=== PATIENT | male | born 1955 | race Caucasian/White ===

== ENCOUNTER → 2023-09-05 09:09 | Outpatient (REF) | payer MEDICARE, OTHER, SELFPAY | LOC: MRI 3T 09:09 | PROVIDERS: ATTENDING PHYSICIAN Orthopaedic Surgery; FAMILY PHYSICIAN Family Medicine | DX: M25.512 Pain in left shoulder (principal) | CPT/HCPCS: 73221 ==

== ENCOUNTER 2023-11-20 11:05 | Emergency (ER) | payer MEDICARE, OTHER, SELFPAY ==
[2023-11-20] VITALS (19 sets, daily range): BP systolic 104–155; BP diastolic 61–118; BMI 34.5
--- NOTE | 2023-11-20 12:14 | ED.GENMED ---
History of Present Illness
<Hank Falcon PA-C - Last Filed: 11/20/23 17:09>
General
Chief Complaint: Cardiac Symptoms
Time Seen by Provider: 11/20/23 11:39
History of Present Illness
History of Present Illness:
68-year-old male with history of atrial flutter (managed on Eliquis and dofetilide) presents to the emergency department for evaluation of epigastric discomfort and rapid heart rate beginning this morning. He also reports GERD symptoms that are
worse with lying supine. Admits to having several passes of wine last night. Nausea or vomiting. Typically has a flutter as well as GERD are well-controlled and he has no breakthrough symptoms. No recent fevers or chills
Past History
<Hank Falcon PA-C - Last Filed: 11/20/23 17:09>
Past History
ED Past Medical History: Arrthythmia (Atrial fib), GERD, HTN and Hypercholesterolemia
ED Past Surgical History: Cardiac (ablation) and Orthopedic (Knee surgery,)
Social History
Tobacco: Non-smoker
Alcohol: Daily (Wine)
Drug: None
Personal:
Living: with family
Employment: Employed
Family History
Family History: Hypertension
Review of Systems
<Hank Falcon PA-C - Last Filed: 11/20/23 17:09>
Review of Systems
Allergies reviewed?: Yes
All Other Systems: ROS reviewed and negative except as documented in HPI and ROS
Phy Exam
<Hank Falcon PA-C - Last Filed: 11/20/23 17:09>
Physical Exam
Physical Exam:
GEN: Well appearing, NAD, WDWN
Eyes: PERRLA, EOMs intact, no scleral icterus
HENT: NCAT, oral mucosa moist
Lungs: CTAB, no wheezes, rales, rhonchi, normal chest wall excursion
Cardiac: Tachycardic, regular, no murmurs
Abdomen: S, NT, ND, NABS, no masses or hepatosplenomegaly
Neuro: AO x 3
MSK: No gross deformity or ecchymosis. No edema. No digital clubbing
Skin: No rashes, petechiae. Normal color, no pallor or jaundice.
Psych: Calm, cooperative, proper hygiene
Course
<Hank Falcon PA-C - Last Filed: 11/20/23 17:09>
Orders/Labs/Results
Orders:
Orders
11/20/23 11:09
ECG [Electrocardiogram (*1)] Urgent
Reason for Study: Chest Pain
EKG- Treatment ONCE
11/20/23 11:45
Complete Blood Count/With Diff Urgent
Comprehensive Metabolic Panel Urgent
Lipase Urgent
Troponin I Urgent
11/20/23 12:05
Add On- LAB Urgent
Tests Added?: lipase
11/20/23 12:09
CR Chest - 2 Views Urgent
Comment:
Reason For Exam: chest/epigastric pain
11/20/23 12:53
Sucralfate Suspension [Carafate Suspension] 1 gm PO NOW STA
11/20/23 12:54
EKG- Treatment ONCE
11/20/23 13:55
D-Dimer Urgent
11/20/23 14:19
Troponin I Routine
11/20/23 14:45
EKG [Electrocardiogram (*1)] Routine
Reason for Study: Chest Pain
11/20/23 14:54
Propofol [Diprivan] 20 ml .ROUTE .STK-MED
Abnormal Lab Results
11/20/23
11:45
WBC 12.5 H 10^3/uL
(4.8-10.8)
Abs Immat Gran (auto) 0.1 H 10^3/uL
(0-0.05)
Absolute Neuts (auto) 10.8 H 10^3/uL
(1.4-6.5)
Absolute Lymphs (auto) 0.9 L 10^3/uL
(1.2-3.4)
Absolute Monos (auto) 0.7 H 10^3/uL
(0.1-0.6)
Immature Gran % 0.6 H %
(0-0.5)
Neutrophils % 86.1 H %
(42.2-75.2)
Lymphocytes % 6.8 L %
(20.5-51.1)
Glucose 195 H mg/dl
(70-99)
Total Bilirubin 2.1 H mg/dl
(0.2-1.3)
11/20/23 11:45
11/20/23 11:45
Vital Signs
Initial and Last Documented VS:
Initial Vital Signs
Temp Pulse Resp BP Pulse Ox
98.1 F 116 20 148/107 98
11/20/23 11:07 11/20/23 11:07 11/20/23 11:07 11/20/23 11:07 11/20/23 11:07
Last Documented Vital Signs
Temp Pulse Resp BP Pulse Ox
97.5 F 85 24 115/74 95
11/20/23 15:54 11/20/23 16:01 11/20/23 16:01 11/20/23 16:00 11/20/23 16:01
<Dameon Campos MD - Last Filed: 11/20/23 15:29>
Orders/Labs/Results
Orders:
Orders
11/20/23 11:09
ECG [Electrocardiogram (*1)] Urgent
Reason for Study: Chest Pain
EKG- Treatment ONCE
11/20/23 11:45
Complete Blood Count/With Diff Urgent
Comprehensive Metabolic Panel Urgent
Lipase Urgent
Troponin I Urgent
11/20/23 12:05
Add On- LAB Urgent
Tests Added?: lipase
11/20/23 12:09
CR Chest - 2 Views Urgent
Comment:
Reason For Exam: chest/epigastric pain
11/20/23 12:53
Sucralfate Suspension [Carafate Suspension] 1 gm PO NOW STA
11/20/23 12:54
EKG- Treatment ONCE
11/20/23 13:55
D-Dimer Urgent
11/20/23 14:19
Troponin I Routine
11/20/23 14:45
EKG [Electrocardiogram (*1)] Routine
Reason for Study: Chest Pain
11/20/23 14:54
Propofol [Diprivan] 20 ml .ROUTE .STK-MED
Abnormal Lab Results
11/20/23
11:45
WBC 12.5 H 10^3/uL
(4.8-10.8)
Abs Immat Gran (auto) 0.1 H 10^3/uL
(0-0.05)
Absolute Neuts (auto) 10.8 H 10^3/uL
(1.4-6.5)
Absolute Lymphs (auto) 0.9 L 10^3/uL
(1.2-3.4)
Absolute Monos (auto) 0.7 H 10^3/uL
(0.1-0.6)
Immature Gran % 0.6 H %
(0-0.5)
Neutrophils % 86.1 H %
(42.2-75.2)
Lymphocytes % 6.8 L %
(20.5-51.1)
Glucose 195 H mg/dl
(70-99)
Total Bilirubin 2.1 H mg/dl
(0.2-1.3)
11/20/23 11:45
11/20/23 11:45
Vital Signs
Initial and Last Documented VS:
Initial Vital Signs
Temp Pulse Resp BP Pulse Ox
98.1 F 116 20 148/107 98
11/20/23 11:07 11/20/23 11:07 11/20/23 11:07 11/20/23 11:07 11/20/23 11:07
Last Documented Vital Signs
Temp Pulse Resp BP Pulse Ox
97.5 F 85 24 115/74 95
11/20/23 15:54 11/20/23 16:01 11/20/23 16:01 11/20/23 16:00 11/20/23 16:01
Procedures
<Hank Falcon PA-C - Last Filed: 11/20/23 17:09>
Cardioversion
Indication:: Afib
Performed by:: Hank Falcon PA-C, Andres Campos MD
Synchronized?: Yes
Energy Used: 150 joules
Number of attempts: 1
Successful?: Yes
Complications: none
ASA Risk Score: Class II
Any reaction or bad outcome to prior sedation/anesthesia?: No history of a reaction
Sedation level to be attained: moderate
Chart and allergies reviewed: Yes
Patient reassessed prior to sedation: Yes
Time out completed at (validating right patient & procedure): 15:13
History of difficult intubation: No
Airway free of obstruction: Yes
Patient has a gag reflex: Yes
Patient is able to open mouth: Yes
Patient has no dentures: Yes
Patient has no loose teeth: Yes
Medication administered by Provider during Moderate Sedation: IV Propofol (mg)
Total dose administered: 60
Time drug administered: 15:14
Start Time: 15:14
Stop Time: 15:24
<Hank Falcon PA-C - Last Filed: 11/20/23 17:09>
MDM/Problems Addressed
MDM/Problems Addressed:
My initial interpretation patient's EKG was a sinus tachycardia after initial negative his tachycardia rate variance I consulted cardiology who felt this represented a 2-1 atrial flutter and thus the decision was made to cardiovert the patient.
Cardioversion was uncomplicated and resolved the patient's symptoms with baptism of normal sinus rhythm. Discharged in stable condition
<Hank Falcon PA-C - Last Filed: 11/20/23 17:09>
*Critical Care Note
Total Time (30-74mins, 75-104mins- exclusive of procedures): Not Applicable
ED Attending Note
<Hank Falcon PA-C - Last Filed: 11/20/23 17:09>
-
Portions of this chart may have been created with voice recognition software.� Occasional wrong word or��sound alike� substitutions may have occurred due to the inherent limitations of voice recognition software.
<Dameon Campos MD - Last Filed: 11/20/23 15:29>
ED Attending Note
Patient seen and examined by attending physician: Yes
I performed the substantive portion of visit, reviewed & personally made and approve the management plan that is documented in note by myself or LARRY.: Yes
ED Attending Note:
Patient presented with some indigestion reflux type symptoms this morning. Also noted some rapid heartbeat in the 110s yesterday. Has a history of atrial fibrillation atrial flutter. He is faithful with his anticoagulation. Feels much better at
this time except still feels his heart racing
Nontoxic in no distress. Tachycardic and regular no murmur. Lungs clear and equal. Airway is clear. Warm and dry. Perfusing well.
EKG shows an atrial flutter at about 110. Discussed options with patient. Options included further rate control and outpatient follow-up versus cardioversion. Risk-benefit explained.
Patient was cardioverted without difficulty. If repeat troponin is stable patient will be discharged to follow-up
Discharge Plan
Departure
Patient Disposition: Home (Routine Discharge)
Date of Disposition: 11/20/23
Time of Disposition: 15:47
Patient with high blood pressure during this ER visit?: No
Discharge Problem:
Atrial flutter with rapid ventricular response
Instructions: Cardioversion (DC), Moderate Sedation in Adults (DC)
Prescriptions:
No Action
atorvastatin 20 MG tablet
20 mg PO HS
sertraline 25 MG tablet
25 mg PO HS
apixaban [Eliquis] 5 MG tablet
5 mg PO BID
rabeprazole [AcipHex] 20 MG tablet,delayed release (DR/EC)
40 mg PO DAILY
metoprolol succinate 25 MG tablet extended release 24 hr
25 mg PO BID
dofetilide 250 MCG capsule
250 mcg PO Q12 Qty: 60 11RF
Referrals:
Shiraz Engel MD [Family Provider] -
Activity Restrictions/Additional Instructions:
Avoid excess alcohol, as this likely contributed to your recurrent atrial flutter/fibrillation
Interventions
Interventions:
*Risk Screen - Suicide Last Done: 11/20/23 11:33
*General Assessment Last Done: 11/20/23 11:33
*Neglect/Abuse Screening Last Done: 11/20/23 11:33
ED- Fall Risk Assessment Last Done: 11/20/23 11:33
*ED COVID-19 Vaccine History Last Done: 11/20/23 11:33
*Nursing Disposition Last Done: 11/20/23 16:06
ED- Cardiac Assessment Last Done: 11/20/23 11:31
ED- Pulmonary Assessment Last Done: 11/20/23 11:33
Discharge Date and Time
Discharge Date/Time: 11/20/23 16:12
Print Language: FAROESE
[2023-11-20 12:15] LABS: ALT (SGPT) 35 U/L (0-50); AST (SGOT) 35 U/L (17-59); Albumin 4.2 g/dl (3.5-5.0); Alkaline Phosphatase 70 U/L (38-126); Blood Urea Nitrogen 17 mg/dl (9-20); Calcium 9.6 mg/dl (8.4-10.2); Carbon Dioxide 27 mmol/L (22-30); Chloride 102 mmol/L (98-107); Estimated Creatinine Clearance 93 ml/min; Glucose 195 mg/dl (70-99); Potassium 4.6 mmol/L (3.5-5.1); Sodium 136 mmol/L (135-145); Total Bilirubin 2.1 mg/dl (0.2-1.3); Total Protein 6.7 g/dl (6.3-8.2); eGFR > 60.00
[2023-11-20 12:19] LABS: % Basophils 0.3 % (0-2); % Eosinophils 0.5 % (0-6); % Immature Granulocytes 0.6 % (0-0.5); % Lymphocytes 6.8 % (20.5-51.1); % Monocytes 5.7 % (1.7-9.3); % Neutrophils 86.1 % (42.2-75.2); Absolute Eosinophils 0.1 10^3/uL (0-0.7); Absolute Immature Granulocytes 0.1 10^3/uL (0-0.05); Absolute Lymphocytes 0.9 10^3/uL (1.2-3.4); Absolute Monocytes 0.7 10^3/uL (0.1-0.6); Absolute Neutrophils 10.8 10^3/uL (1.4-6.5); Hematocrit 45.2 % (39.0-52.0); Hemoglobin 16.3 g/dL (13.0-18.0); Mean Corp Hgb Conc. 36.1 g/dL (33.0-37.0); Mean Corpuscular Hgb 30.6 pg (27.0-31.0); Mean Platelet Volume 9.4 fL (7.4-10.4); Nucleated Red Blood Cells % 0 % (-); Platelet Count 300 10^3/uL (130-400); Red Blood Cell Count 5.32 10^6/uL (4.70-6.10); Red Cell Dist. Width 12.6 % (11.5-14.5); White Blood Cell Count 12.5 10^3/uL (4.8-10.8)
[2023-11-20 12:20] LABS: Troponin I < 0.012 ng/ml
[2023-11-20 12:50] LABS: Lipase 85 U/L (23-300)
[2023-11-20] MEDS: CARAFATE SUSPENSION 1 GM PO (13:02)
[2023-11-20 15:10] LABS: Troponin I < 0.012 ng/ml
[2023-11-20 15:14] LABS: D-Dimer < 0.27 ug/mlFEU (0.00-0.50)
== END 2023-11-20 16:12 | disposition home or self-care (01) ==
LOC: EMR 11:05
PROVIDERS: Physician Assistant; EMERGENCY PHYSICIAN Emergency Medicine; FAMILY PHYSICIAN Family Medicine
DX: I48.92 Unspecified atrial flutter (principal); K21.9 Gastro-esophageal reflux disease without esophagitis; I48.91 Unspecified atrial fibrillation; I10 Essential (primary) hypertension; E78.00 Pure hypercholesterolemia, unspecified; Z79.01 Long term (current) use of anticoagulants; Z82.49 Family history of ischemic heart disease and other diseases of the circulatory system
CPT/HCPCS: 99283; 92960; 71046; 80053; 83690; 84484; 85025; 85379; 93005

== ENCOUNTER 2023-11-25 06:23 | Day surgery (SDC) | payer MEDICARE, OTHER, SELFPAY ==
[2023-11-25] VITALS (12 sets, daily range): BP systolic 117–258; BP diastolic 56–192; BMI 34.7
[2023-11-25] MEDS: TYLENOL 1000 MG PO (07:57)
[2023-11-25] MEDS: NORMOSOL-R 1000 IV (08:00)
== END 2023-11-25 12:25 | disposition home or self-care (01) ==
LOC: SDS 06:23
PROVIDERS: ATTENDING PHYSICIAN Orthopaedic Surgery
DX: M75.122 Complete rotator cuff tear or rupture of left shoulder, not specified as traumatic (principal); S43.432A Superior glenoid labrum lesion of left shoulder, initial encounter; X58.XXXA Exposure to other specified factors, initial encounter; M75.42 Impingement syndrome of left shoulder
CPT/HCPCS: 29827; 29823; C1713

== ENCOUNTER → 2024-01-12 09:46 | Outpatient (REF) | payer MEDICARE, OTHER, SELFPAY | LOC: MRI 3T 09:46 | PROVIDERS: ATTENDING PHYSICIAN Specialist; FAMILY PHYSICIAN Family Medicine | DX: R97.20 Elevated prostate specific antigen [PSA] (principal) | CPT/HCPCS: 72197; A9575 ==

== ENCOUNTER 2024-02-03 06:18 | Day surgery (SDC) | payer MEDICARE, OTHER, SELFPAY ==
[2024-02-03] MEDS: NORMOSOL-R/PLASMALYTE-A 1000 IV (09:45)
[2024-02-03 09:50] VITALS: BMI 33.5
[2024-02-03 09:55] VITALS: BP 166/81
[2024-02-03 10:03] VITALS: BMI 33.5
[2024-02-03] MEDS: NEOMYCIN ENEMA 1 BOTTLE RECTAL (10:08)
[2024-02-03 10:21] LABS: Urine Albumin Negative (Neg - Trace); Urine Bilirubin Negative (Negative); Urine Character Clear (Clear); Urine Color Yellow; Urine Glucose Negative (Negative); Urine Ketone Negative (Negative); Urine Leukocyte Negative (Negative); Urine Nitrite Negative (Negative); Urine Occult Blood Negative (Negative); Urine Urobilinogen Negative (Neg - 1+); Urine pH 6.5 (5.0-9.0)
[2024-02-03 11:54] VITALS: BP 113/66
[2024-02-03 12:00] VITALS: BP 116/90
[2024-02-03 12:15] VITALS: BP 112/71
[2024-02-03 12:30] VITALS: BP 132/69
[2024-02-03 13:19] VITALS: BP 145/73
== END 2024-02-03 13:52 | disposition home or self-care (01) ==
LOC: SDS 06:18
PROVIDERS: ATTENDING PHYSICIAN Specialist
DX: C61 Malignant neoplasm of prostate (principal)
CPT/HCPCS: 55700; 76998; 81003; 88305; 88344

== ENCOUNTER → 2024-02-09 09:14 | Outpatient (REF) | payer MEDICARE, OTHER, SELFPAY | LOC: HWRCS 09:14 | PROVIDERS: ATTENDING PHYSICIAN Internal Medicine Cardiovascular Disease; FAMILY PHYSICIAN Family Medicine | DX: I48.0 Paroxysmal atrial fibrillation (principal) | CPT/HCPCS: 93306 ==

== ENCOUNTER → 2024-07-19 12:40 | Outpatient (REF) | payer MEDICARE, OTHER, SELFPAY | LOC: HWRAD 12:40 | PROVIDERS: ATTENDING PHYSICIAN Student in an Organized Health Care Education/Training Program; FAMILY PHYSICIAN Family Medicine | DX: R05.1 Acute cough (principal) | CPT/HCPCS: 71046 ==

== ENCOUNTER → 2024-09-13 11:09 | Outpatient (REF) | payer MEDICARE, OTHER, SELFPAY ==
[2024-09-13 12:13] LABS: Blood Urea Nitrogen 15 mg/dl (9-20); Calcium 9.9 mg/dl (8.4-10.2); Carbon Dioxide 28 mmol/L (22-30); Chloride 105 mmol/L (98-107); Glucose 169 mg/dl (70-99); Potassium 4.8 mmol/L (3.5-5.1); Sodium 142 mmol/L (135-145); eGFR > 60.00
== END ==
LOC: REG 11:09
PROVIDERS: ATTENDING PHYSICIAN Physician Assistant Medical; FAMILY PHYSICIAN Family Medicine
DX: I48.0 Paroxysmal atrial fibrillation (principal)
CPT/HCPCS: 36415; 80048; 83735

== ENCOUNTER 2024-09-14 09:41 | Day surgery (SDC) | payer MEDICARE, OTHER, SELFPAY | END 2024-09-14 11:43 | disposition home or self-care (01) | LOC: CATH 09:41 | PROVIDERS: ATTENDING PHYSICIAN Internal Medicine Cardiovascular Disease; FAMILY PHYSICIAN Family Medicine; OTHER PHYSICIAN Internal Medicine Cardiovascular Disease | DX: I48.0 Paroxysmal atrial fibrillation (principal); Z53.09 Procedure and treatment not carried out because of other contraindication; I48.92 Unspecified atrial flutter; I45.10 Unspecified right bundle-branch block; E78.5 Hyperlipidemia, unspecified; Z85.46 Personal history of malignant neoplasm of prostate | CPT/HCPCS: 93005 ==

== ENCOUNTER → 2025-01-02 09:59 | Outpatient (REF) | payer MEDICARE, OTHER, SELFPAY | LOC: SDSPAT 09:59 | PROVIDERS: ATTENDING PHYSICIAN Internal Medicine Cardiovascular Disease; FAMILY PHYSICIAN Family Medicine; OTHER PHYSICIAN Internal Medicine Cardiovascular Disease | DX: I48.0 Paroxysmal atrial fibrillation (principal) | CPT/HCPCS: 93005 ==

== ENCOUNTER 2025-01-03 07:27 | Day surgery (SDC) | payer MEDICARE, OTHER, SELFPAY ==
[2025-01-02 09:41] VITALS: BMI 34.0
== END 2025-01-03 08:58 | disposition home or self-care (01) ==
LOC: CATH 07:27
PROVIDERS: ATTENDING PHYSICIAN Internal Medicine Cardiovascular Disease; FAMILY PHYSICIAN Family Medicine; OTHER PHYSICIAN Internal Medicine Cardiovascular Disease
DX: I48.0 Paroxysmal atrial fibrillation (principal); I48.92 Unspecified atrial flutter; I10 Essential (primary) hypertension; E78.5 Hyperlipidemia, unspecified; I45.2 Bifascicular block; I34.0 Nonrheumatic mitral (valve) insufficiency; K21.9 Gastro-esophageal reflux disease without esophagitis; F41.9 Anxiety disorder, unspecified; F32.A Depression, unspecified; E66.9 Obesity, unspecified; Z68.34 Body mass index [BMI] 34.0-34.9, adult; Z79.01 Long term (current) use of anticoagulants
CPT/HCPCS: 92960; 93005

== ENCOUNTER 2025-01-11 10:11 | Day surgery (SDC) | payer MEDICARE, OTHER, SELFPAY ==
--- NOTE | 2025-01-11 11:00 | ITS.CL.CARDI ---
[employer] - Cardioversion
Cardioversion
Procedure Report:
Date of Procedure: 01/11/25
Procedure: Cardioversion
Indication: Symptomatic atrial fibrillation
Performing Physician: Kg Jaramillo MD
Technique: The patient was brought to the holding area. Signed informed consent was obtained. A time out was called and performed. The patient was anesthetized by the anesthesia service. Anticoagulation status was reviewed and appropriate. R2 pads
were placed anteriorly and posteriorly. A 200 J synchronized biphasic shock restored normal sinus rhythm without significant bradycardia. There were no complications.
Conclusion: Uncomplicated cardioversion from atrial fibrillation to sinus rhythm.
Recommendation: Routine post cardioversion care. Continue internal salesperson anticoagulation.
== END 2025-01-11 11:40 | disposition home or self-care (01) ==
LOC: CATH 10:11
PROVIDERS: ATTENDING PHYSICIAN Internal Medicine Cardiovascular Disease; FAMILY PHYSICIAN Family Medicine
DX: I48.0 Paroxysmal atrial fibrillation (principal); I48.4 Atypical atrial flutter; Z79.01 Long term (current) use of anticoagulants; I10 Essential (primary) hypertension; K21.9 Gastro-esophageal reflux disease without esophagitis; I44.4 Left anterior fascicular block; I45.10 Unspecified right bundle-branch block; J98.4 Other disorders of lung
CPT/HCPCS: 92960; 93005